=== PATIENT | female | born 2000 | race Caucasian/White ===

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

== ENCOUNTER 2018-02-09 20:40 | Inpatient (IN) | END 2018-02-10 19:45 | disposition home or self-care (01) | DRG 833 ==

== ENCOUNTER 2018-06-01 09:16 | Inpatient (IN) | payer OTHER ==
[~2018-06-01] VITALS: Ht 154.9 cm; Wt 56.4 kg
[~2018-06-01 09:16] MED LIST: ALBU90AE INHALATION; CEPH500C PO; NITR-58 PO
[2018-06-01 09:34] VITALS: BP 119/78; Ht 154.9 cm; Wt 56.4 kg
[2018-06-01] MEDS: LACTATED RINGER'S 1,000 ML IV SCH ×3 (12:49→23:04)
[2018-06-01] MEDS ORDERED: OXYTOCIN 30 UNITS/LR 500 ML IV PRN (13:00)
[2018-06-01] MEDS ORDERED: BUTORPHANOL 2 MG INJ IV PRN (13:00)
[2018-06-01] MEDS ORDERED: LIDOCAINE 1% (MPF) 30 ML INJ INJ PRN (13:00)
[2018-06-01] MEDS ORDERED: METHYLERGONOVINE 0.2 MG INJ IM PRN (13:00)
[2018-06-01] MEDS ORDERED: MISOPROSTOL 200 MCG TAB PR PRN (13:00)
[2018-06-01] MEDS ORDERED: BUTORPHANOL 1 MG INJ IV PRN (13:00)
[2018-06-01] MEDS ORDERED: OXYTOCIN 30 UNITS/LR 500 ML IV SCH ×3 (13:00)
[2018-06-01] MEDS ORDERED: CARBOPROST 250 MCG INJ IM PRN (13:00)
--- NOTE | 2018-06-01 14:35 | TRIAGE ---
OB Triage Datetime Report Generated by CPN: 06/01/2018 11:45 Datetime: 06/01/2018 10:16 Stage of : OB Triage Labor Evaluation Frequency: X1 Monitor Mode: External Pattern: Normal: <= 5 Contractions in 10 Minutes Resting Tone Point Baker: Relaxed Heart Rate FHR Baseline Rate: 145 Monitor Mode: External US Variability: Moderate 6-25 bpm Accelerations: 15X15 Decelerations: None Category: Category I Datetime: 06/01/2018 09:30 Vaginal Exam Dilatation (cms): 1.0 Effacement (%): 70 Station: -3 Exam By: CatieBean MORENO Datetime: 06/01/2018 09:27 Stage of : OB Triage Assessment Type: Triage Maternal Assessment Level of Consciousness: Fully Conscious DTR's/Clonus: DTRs 2+; No Clonus Headache: Denies Blurred Vision: No Respiratory Effort: Unlabored; Regular Rhythm; Equal Expansion Breath Sounds, Left: Clear and Equal Breath Sounds, Right: Clear and Equal Nausea/Vomiting: Denies RUQ Epigastric Pain: Denies Lower Extremities Edema: None Degree: None Upper Extremities Edema: None Degree: None Facial Edema: None Temperature Route: Oral Fall Risk Assessment History of Falling: (0) No Secondary Diagnosis: (0) No Ambulatory Aid: (0) Bedrest/Nurse Assist IV Therapy: (0) No Gait: (0) Normal/Bedrest/Immobile Mental Status: (0) Oriented to Own Ability Fall Score: 0 Fall Risk Score Definition: No Risk: No action required Monitor Mode: External (Annotations: INIITIAL PLACEMENT ) Monitor Mode: External US (Annotations: INIITIAL PLACEMENT ) Pain Assessment Pain Scale: 4 Pain Presence: Intermittent Pain Type: Cramping Pain Location: Abdomen Datetime: 06/01/2018 09:26 Time of Arrival: 06/01/2018 09:14 EGA: 39.2 Arrived By: Ambulatory Arrived From: Home Chief Complaint: BLEEDING AND UC'S STARTED AT 07:30 AM Movement: Present Contractions: Occasional Rupture of Membranes: Denies Vaginal Bleeding: Small Vaginal Discharge: Present Recent Sexual Intercouse: Denies Abdominal Trauma: Not Applicable Patient Complaints: Contractions; Other Time Provider Notified: 06/01/2018 10:42 Provider Notified: ABDIRIZAK TORO Initial Plan: EFM, VE CALL MD Datetime: 02/10/2018 19:45 Stage of : Antepartum Datetime: 02/10/2018 19:23 Stage of : Antepartum Temperature Route: Oral Contraction Comments: PT DENIES CRAMPING Comments: PT STATES + FM Pain Presence: None/Denies Pain Type: N/A Datetime: 02/10/2018 19:00 Labor Evaluation Frequency: NONE Monitor Mode: External Pain Presence: None/Denies Datetime: 02/10/2018 18:00 Maternal Assessment Level of Consciousness: Fully Conscious Headache: Denies Blurred Vision: No Nausea/Vomiting: Denies RUQ Epigastric Pain: Denies Facial Edema: None Labor Evaluation Frequency: NONE Pain Presence: None/Denies Datetime: 02/10/2018 17:00 Labor Evaluation Frequency: X3 Monitor Mode: External Duration (sec)2399: 20-60 Pattern: Normal: <= 5 Contractions in 10 Minutes Resting Tone Point Baker: Relaxed Pain Presence: None/Denies Datetime: 02/10/2018 16:00 DTR's/Clonus: DTRs 2+ Labor Evaluation Frequency: X3 Monitor Mode: External Duration (sec)2399: 30-60 Pattern: Normal: <= 5 Contractions in 10 Minutes Resting Tone Point Baker: Relaxed Datetime: 02/10/2018 15:00 Maternal Assessment Level of Consciousness: Fully Conscious Headache: Denies Blurred Vision: No Nausea/Vomiting: Denies RUQ Epigastric Pain: Denies Facial Edema: None Labor Evaluation Frequency: none Monitor Mode: External Pain Presence: None/Denies Datetime: 02/10/2018 14:00 Maternal Assessment Level of Consciousness: Fully Conscious DTR's/Clonus: DTRs 2+ Headache: Denies Blurred Vision: No Nausea/Vomiting: Denies RUQ Epigastric Pain: Denies Facial Edema: None Labor Evaluation Frequency: none Monitor Mode: External Pain Presence: None/Denies Datetime: 02/10/2018 13:00 Monitor Mode: External Contraction Comments: toco misplaced after pt went bathroom Datetime: 02/10/2018 11:52 Labor Evaluation Frequency: x2 UC noted Monitor Mode: External Duration (sec)2399: 30-40 Quality: Mild Resting Tone Point Baker: Relaxed Heart Rate FHR Baseline Rate: 145 Monitor Mode: External US FHR Baseline Changes: No Baseline Change Variability: Moderate 6-25 bpm Accelerations: 15X15 Decelerations: Variable Comments: Appropriate for gestational age Datetime: 02/10/2018 11:32 Comments: NST started now Datetime: 02/10/2018 11:00 Maternal Assessment Level of Consciousness: Fully Conscious Headache: Denies Blurred Vision: No Respiratory Effort: Unlabored Breath Sounds, Left: Clear and Equal Breath Sounds, Right: Clear and Equal Nausea/Vomiting: Denies RUQ Epigastric Pain: Denies Facial Edema: None Labor Evaluation Frequency: NONE Monitor Mode: External Pain Presence: None/Denies Datetime: 02/10/2018 10:00 Maternal Assessment Level of Consciousness: Fully Conscious Headache: Denies Blurred Vision: No Nausea/Vomiting: Denies RUQ Epigastric Pain: Denies Facial Edema: None Labor Evaluation Frequency: X2 Monitor Mode: Internal Duration (sec)2399: 30 Resting Tone Point Baker: Relaxed Pain Presence: None/Denies Datetime: 02/10/2018 09:00 Maternal Assessment Level of Consciousness: Fully Conscious DTR's/Clonus: DTRs 2+ Headache: Denies Blurred Vision: No Nausea/Vomiting: Denies RUQ Epigastric Pain: Denies Facial Edema: None Labor Evaluation Frequency: none Pain Presence: None/Denies Datetime: 02/10/2018 08:19 Stage of : Antepartum Temperature Route: Oral Labor Evaluation Frequency: NONE Monitor Mode: External Pain Assessment Pain Scale: 0 Pain Presence: None/Denies Pain Goal: 3 Datetime: 02/10/2018 08:05 Assessment Type: Ongoing Assessment Maternal Assessment Level of Consciousness: Fully Conscious Headache: Denies Blurred Vision: No Respiratory Effort: Unlabored Breath Sounds, Left: Clear and Equal Breath Sounds, Right: Clear and Equal Nausea/Vomiting: Denies RUQ Epigastric Pain: Denies Lower Extremities Edema: None Degree: None Upper Extremities Edema: None Degree: None Facial Edema: None Fall Risk Assessment History of Falling: (0) No Gait: (0) Normal/Bedrest/Immobile Datetime: 02/10/2018 07:10 Labor Evaluation Frequency: 0 Monitor Mode: External Resting Tone Point Baker: Relaxed Pain Presence: None/Denies Datetime: 02/10/2018 06:10 Labor Evaluation Frequency: x1 Monitor Mode: External Duration (sec)2399: 50 Quality: Mild Resting Tone Point Baker: Relaxed Pain Presence: None/Denies Datetime: 02/10/2018 05:10 Labor Evaluation Frequency: 0 Monitor Mode: External Resting Tone Point Baker: Relaxed Pain Presence: None/Denies Datetime: 02/10/2018 04:12 Stage of : Antepartum Temperature Route: Oral Pain Presence: None/Denies Datetime: 02/10/2018 04:10 Labor Evaluation Frequency: 0 Monitor Mode: External Resting Tone Point Baker: Relaxed Pain Presence: None/Denies Datetime: 02/10/2018 03:10 Labor Evaluation Frequency: 0 Monitor Mode: External Resting Tone Point Baker: Relaxed Pain Presence: None/Denies Datetime: 02/10/2018 02:10 Labor Evaluation Frequency: 0 Monitor Mode: External Resting Tone Point Baker: Relaxed Pain Presence: None/Denies Datetime: 02/10/2018 01:10 Labor Evaluation Frequency: 0 Monitor Mode: External Duration (sec)2399: denies Resting Tone Point Baker: Relaxed Pain Presence: None/Denies Datetime: 02/10/2018 00:10 Labor Evaluation Frequency: 0 Monitor Mode: External Resting Tone Point Baker: Relaxed Pain Presence: None/Denies Datetime: 02/09/2018 23:10 Labor Evaluation Frequency: X1 Monitor Mode: External Duration (sec)2399: 40 Quality: Mild Resting Tone Point Baker: Relaxed Pain Presence: None/Denies Datetime: 02/09/2018 22:17 Pain Presence: None/Denies Datetime: 02/09/2018 22:10 Labor Evaluation Frequency: X1 Monitor Mode: External Duration (sec)2399: 50 Quality: Mild Resting Tone Point Baker: Relaxed Contraction Comments: PT DENIES FEELING ANY UC'S,SOME UTERUS IRRITABILITY NOTED. Comments: NST Q SHIFT PT STATED FEELING BABY MOVING. Pain Presence: None/Denies Datetime: 02/09/2018 21:33 Stage of : Antepartum Assessment Type: Ongoing Assessment Maternal Assessment Level of Consciousness: Fully Conscious DTR's/Clonus: DTRs 2+; No Clonus Headache: Denies Blurred Vision: No Respiratory Effort: Unlabored; Regular Rhythm; Equal Expansion Breath Sounds, Left: Clear and Equal Breath Sounds, Right: Clear and Equal Nausea/Vomiting: Denies RUQ Epigastric Pain: Denies Lower Extremities Edema: None Degree: None Upper Extremities Edema: None Degree: None Facial Edema: None Temperature Route: Oral Fall Risk Assessment History of Falling: (0) No Secondary Diagnosis: (0) No Ambulatory Aid: (0) Bedrest/Nurse Assist IV Therapy: (0) No Gait: (0) Normal/Bedrest/Immobile Mental Status: (0) Oriented to Own Ability Fall Score: 0 Fall Risk Score Definition: No Risk: No action required Pain Presence: None/Denies Datetime: 02/09/2018 21:00 Stage of : OB Triage Maternal Assessment Level of Consciousness: Fully Conscious Labor Evaluation Frequency: 0 Monitor Mode: External Resting Tone Point Baker: Relaxed Pain Assessment Pain Scale: 6 Pain Presence: Constant Pain Type: Ache Pain Location: Back Pain Goal: 3 Membrane Status: Intact Vaginal Bleeding: None Datetime: 02/09/2018 19:12 Fall Score: 0 Fall Risk Score Definition: No Risk: No action required Datetime: 02/09/2018 19:11 EGA: 23.2
--- NOTE | 2018-06-01 18:20 | HP ---
Date/Time of Note Date/Time of Note DATE: 06/01/18 TIME: 18:15 OB - History Hx of Present Free Text/Dictation 18-year-old female 1 para 0 at term gestation admitted complaining of onset of labor contractions started a few hours prior to admission Patient also complaining of spotting Last Menstrual Period: Aug 30, 2017 Estimated Due Date: Jun 06, 2018 : 1 Para: 0 Care: Good Care Ultrasounds: Normal mid trimester US Obstetrical Complications: None Medical Complications: None Past Family/Social History * Past Medical, Surgical, Family and Obstetric Histories reviewed from chart. Blood Type: A+ Rubella: immune RPR/VDRL: Negative GBS Status: Negative HBsAG: Negative OB Admission Exam Vital Signs Vital Signs Vital Signs Date Temp Pulse Resp B/P (MAP) Pulse Ox O2 O2 Flow FiO2 Time Delivery Rate 06/01/18 98.2 119/78 Room Air 09:34 (92) Physical Exam HEENT: WNL Heart: Rhythm Normal Lungs: Clear, Equal Abdomen: WNL Extremities: Normal Reflexes: Normal Cervical Dilatation: 1cm Effacement: 50% Station: -3 Membranes: Intact Heart Rate: 140's Accelerations: Accelerations Present Decelerations: No Decelerations Varibility: Marked Contractions on Admission: 6-10 Minutes Apart Date/Time Contractions Began: 06/01/2018 in a.m. Frequency of Contractions: Every 7-10 minutes Duration: Over 60 seconds Intensity: Mild Last 72 hours Lab Results CBC & BMP 06/01/18 14:56 OB Assessment/Plan Other Assessment: Term gestation in labor pains Other plan: Proceed with spontaneous labor and if necessary will augment UZIEL SEWELL MD Jun 01, 2018 18:20
[2018-06-02] MEDS ORDERED: OXYTOCIN 30 UNITS/LR 500 ML IV SCH (08:00)
[2018-06-02] MEDS ORDERED: MINERAL OIL LIGHT 10 ML VIAL TOP ONE ×2 (08:00→18:00)
--- NOTE | 2018-06-02 11:05 | PREAC ---
Date/Time of Note Date/Time of Note DATE: 06/02/18 TIME: 11:04 Anesthesia Eval and Record Evaluation Time Pre-Procedure Interview DATE: 06/02/18 TIME: 11:04 Age 18 Sex female NPO: 8 hrs Preoperative diagnosis labor pain Planned procedure epidural Past Medical History Past Medical History: None Surgery & Anesthesia Issues No known issue Meds Anticoagulation: No Beta Satnam within 24 hr: No Reason Beta Satnam not given: Pt. not on B-Satnam Discontinued Reported Medications Nitrofurantoin Monohyd Macrocr (Macrobid) 100 Mg Capsr, 100 MG PO BID, CAP 02/09/18 Albuterol Sulfate (Proair Respiclick) 90 Mcg Aer.pow.ba, 2 PUFFS INHALATION Q6, #1 BOTTLE 07/20/17 Discontinued Scripts Cephalexin* (Cephalexin*) 500 Mg Capsule, 500 MG PO Q6, #30 CAP 0 Refills Prov:UZIEL SEWELL MD 02/10/18 Current Medications Lactated Ringer's 1,000 ml @ 125 mls/hr Q8H IV Last administered on 06/01/18at 23:04; Admin Dose 125 MLS/HR; Start 06/01/18 at 12:49 Butorphanol Tartrate (Stadol) 1 mg Q2H PRN IV .PAIN; Start 06/01/18 at 13:00 Butorphanol Tartrate (Stadol) 2 mg Q2H PRN IV .PAIN; Start 06/01/18 at 13:00 Lidocaine (Xylocaine 1% (Mpf)) 30 ml ONCE PRN INJ .EPISIOTOMY; Start 06/01/18 at 13:00 Oxytocin/Lactated Ringer's 500 ml @ 500 mls/hr ONCE POST IV ; Start 06/01/18 at 13:00 Oxytocin/Lactated Ringer's 500 ml @ 125 mls/hr POST IV ; Start 06/01/18 at 13:00 Oxytocin/Lactated Ringer's 500 ml @ 0 mls/hr ONCE PRN IV .VAGINAL BLEEDING; Start 06/01/18 at 13:00 Methylergonovine Maleate (Methergine) 0.2 mg ONCE PRN IM .VAGINAL BLEEDING; Start 06/01/18 at 13:00 Carboprost Tromethamine (Hemabate) 250 mcg ONCE PRN IM .VAGINAL BLEEDING; Start 06/01/18 at 13:00 Misoprostol (Cytotec) 1,000 mcg ONCE PRN UT .VAGINAL BLEEDING; Start 06/01/18 at 13:00 Oxytocin/Lactated Ringer's 500 ml @ 0 mls/hr FOR AUGMENTATION IV Last administered on 06/02/18at 08:08; Admin Dose 1 MLS/HR; Start 06/01/18 at 13:00 Oxytocin/Lactated Ringer's 500 ml @ 0 mls/hr FOR AUGMENTATION IV ; Start 06/02/18 at 08:00 Meds reviewed: Yes Allergies Coded Allergies: No Known Allergy (Unverified , 07/20/17) Allergies Reviewed: Yes Labs/Studies Labs Reviewed: Reviewed by anesthesiologist Result Diagram: 06/01/18 1456 Laboratory Tests 06/01/18 14:56 Blood Bank Test 06/01/18 14:56 Antibody Screen NEGATIVE Blood Type A POSITIVE Rh Immune Globulin Candidate NO test: Positive Studies: ECG (n/a), CXR (n/as) Pre-procedure Exam Last vitals Vital Signs Date Temp Pulse Resp B/P (MAP) Pulse Ox O2 O2 Flow FiO2 Time Delivery Rate 06/01/18 98.2 119/78 Room Air 09:34 (92) Airway: Adequate mouth opening Mallampati: Mallampati I Teeth: Normal Lung: Normal Heart: Normal ASA Physical Status ASA physical status: 2 Emergency: None Planned Pain Management Epidural Pre-operative Attestations Prior to commencing anesthesia and surgery, the patient was re-evaluated, there was verification of: *The patient's identity *The results of appropriate recent lab work and preoperative vital signs *The above evaluation not changing prior to induction *Anesthetic plan, risk benefits, alternative and complications discussed with patient/family; questions answered; patient/family understands, accepts and wishes to proceed. WALLY PIERRE MD Jun 02, 2018 11:05
[2018-06-02] MEDS ORDERED: FENTAnyl 2MCG/ML-ROPIV 0.2% 100 ML ONE (11:20)
[2018-06-02] MEDS ORDERED: ACETAMINOPHEN 1000MG/100ML IV 100 ML IVPB ONE (11:30)
[2018-06-02] MEDS ORDERED: FENTAnyl 2MCG/ML-ROPIV 0.2% 100 ML BAG EPI SCH (11:30)
[2018-06-02] MEDS ORDERED: NALOXONE (0.4 MG/ML) INJ IV PRN (11:30)
[2018-06-02] MEDS: LACTATED RINGER'S 1,000 ML IV SCH ×2 (12:01→12:03)
--- NOTE | 2018-06-02 18:30 | PAC ---
Date/Time of Note Date/Time of Note DATE: 06/02/18 TIME: 18:29 Post-Anesthesia Notes Post-Anesthesia Note Last documented vital signs Vital Signs Date Temp Pulse Resp B/P (MAP) Pulse Ox O2 O2 Flow FiO2 Time Delivery Rate 06/01/18 98.2 119/78 Room Air 12:34 (92) Activity: WNL Respiratory function: WNL Cardiovascular function: WNL Mental status: Baseline Pain reasonably controlled: Yes Hydration appropriate: Yes Nausea/Vomiting absent: No WALLY PIERRE MD Jun 02, 2018 18:30
[2018-06-02] MEDS ORDERED: KETOROLAC 30 MG INJ IV STA (19:02)
--- NOTE | 2018-06-02 19:02 | LDN ---
Date/Time of Note Date/Time of Note DATE: 06/02/18 TIME: 19:00 Delivery Summary Vacuum extraction of a viable infant over midline episiotomy with Apgars of 8 9 Weeks of Gestation 39 weeks plus Assisted Vaginal Delivery: Vacuum (Vacuum extraction was performed because of history of operations on brain tumors to facilitate the second stage) Placenta Delivered: Spontaneously, Intact & Complete Episiotomy: Yes Indication for episiotomy Second stage facilitation History of 20 operations and brain tumor Perineal laceration: 0 Laceration repair: Midline episiotomy was repaired in layers using 2-0 Vicryl continuous stitch in deeper layers and 2-0 chromic and superficial layer Anesthesia type: Epidural Estimated blood loss: 200 Sponge & Needle done & correct: Yes All needle counts correct: Yes Any foreign bodies felt in the: No Infant Delivery Information Sex Infant Sex: female Apgars 1 Minute: 8 5 Minute: 9 Suctioning Nose & mouth suctioned at anuja: Yes Delee suction performed: No Umbilical Cord Umbilical cord with: 3 Vessels Cord presentations: nuchal cord Nuchal cord present X: 1 Cord Blood was obtained: Yes Mother & Baby Disposition Disposition Mom & Baby to Maternity; Good: Yes (Mother and baby were recovered in good condition) Mom transferred to: Other (Maternity) Baby to NICU: No UZIEL SEWELL MD Jun 02, 2018 19:02
[2018-06-02] MEDS ORDERED: LIDOCAINE 1% (MPF) 30 ML INJ INJ PRN (20:00)
[2018-06-02 21:45] VITALS: BP 121/80; PULSE 96; RESP 18
[2018-06-02] MEDS ORDERED: LANOLIN HPA 1 PKT TOP PRN (22:00)
[2018-06-02] MEDS ORDERED: BENZOCAINE 20% 56 ML SPRAY TOP PRN (22:00)
[2018-06-02] MEDS ORDERED: METHYLERGONOVINE 0.2 MG INJ IM PRN (22:00)
[2018-06-02] MEDS ORDERED: HYDROCODONE/APAP (5/325) TAB PO PRN ×2 (22:00)
[2018-06-02] MEDS ORDERED: CARBOPROST 250 MCG INJ IM PRN (22:00)
[2018-06-02] MEDS ORDERED: OXYTOCIN 30 UNITS/LR 500 ML IV PRN (22:00)
[2018-06-02] MEDS ORDERED: MISOPROSTOL 200 MCG TAB PR PRN (22:00)
[2018-06-02] MEDS ORDERED: DIBUCAINE 1% 30 GM OINT TOP PRN (22:00)
[2018-06-02] MEDS ORDERED: WITCH HAZEL/GLYCERIN PAD PR PRN (22:00)
[2018-06-02] MEDS ORDERED: ZOLPIDEM 5 MG TAB PO PRN (22:00)
[2018-06-02 22:15] VITALS: BP 118/65; PULSE 94
[2018-06-02] MEDS: LACTATED RINGER'S 1,000 ML IV* SCH (23:28)
[2018-06-02] MEDS: CEPHALEXIN 500 MG CAP PO SCH (23:41)
[2018-06-02] MEDS: IBUPROFEN 600 MG TAB PO SCH (23:42)
[2018-06-03 00:30] VITALS: BP 106/68; PULSE 86; RESP 18
[2018-06-03 04:45] VITALS: BP 100/63; PULSE 80; RESP 16
[2018-06-03] MEDS: CEPHALEXIN 500 MG CAP PO SCH ×4 (06:14→23:51)
[2018-06-03] MEDS: IBUPROFEN 600 MG TAB PO SCH ×4 (06:15→23:52)
[2018-06-03 08:30] VITALS: BP 109/72; PULSE 72; RESP 18
[2018-06-03] MEDS: SENNA/DOCUSATE NA (8.6MG/50MG) TAB PO SCH ×2 (09:22→23:51)
[2018-06-03] MEDS: MAGNESIUM HYDROXIDE 30ML CUP PO SCH ×2 (09:22→23:51)
[2018-06-03 11:53] VITALS: BP 106/69; PULSE 87; RESP 17
--- NOTE | 2018-06-03 16:25 | DS ---
Date/Time of Note Date/Time of Note Home today or next day DATE: 06/03/18 TIME: 16:24 Obstetrical Discharge Record Final Diagnosis Final Diagnosis: Term delivered Other Final Diagnosis Status post vaginal delivery Vaginal Delivery Obstetrical Delivery: Episiotomy, Repaired, Vacuum Extraction Complications Other (Previous history of brain tumor with multiple operations) Augmentation: Yes Condition on Discharge Physical Assessment Last Vitals: See nurse's notes Voiding: Yes Bowel Movement: Yes Breast: Soft, non-tender, Filling Fundus: Firm Abdomen and Incision: Abdomen is soft with present bowel sounds and fundus is firm Episiotomy: Episiotomy is healing well and appears clean Calf Tenderness: No Patient Condition: Good UZIEL SEWELL MD Jun 03, 2018 16:25
[2018-06-03 16:32] VITALS: BP 107/73; PULSE 79; RESP 17
--- NOTE | 2018-06-03 18:02 | PD.PPDC ---
[employer] MARKER Discharge Instruction Provider Information Physician Information 18-year-old female had vaginal delivery Diagnosis [id number] Final Diagnosis: Wfout0u Status post vaginal delivery Condition [id number] Patient Condition: Impfi2g Good Diet Dntwl3Hr Diet: Zsxln2j Resume Regular Diet Activity/Restrictions [id number] Activity: [id number] Normal Activity May Shower [id number] Restrictions: Lbeyl0r Nothing in the Vagina [id number] Return to Work or School: Krkkz1n July 18, 2018 Follow-up Follow-up with Physician: 2, 4, Week/Weeks (In clinic) Return to clinic for [id number] OB Instructions: Fvmet2u Breast Tenderness Depression Comment: Pelvic rest for 6 weeks UZIEL SEWELL MD Jun 03, 2018 18:02
[2018-06-03] MEDS ORDERED: IBUP-1542 PO (18:04)
[2018-06-03] MEDS: LACTATED RINGER'S 1,000 ML IV* SCH ×2 (19:44→19:45)
[2018-06-03 20:00] VITALS: BP 119/82; PULSE 85; RESP 18; RESP 19
--- NOTE | 2018-06-03 22:20 | DELSUM ---
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 (Annotations: Data stored by C THEODORE on behalf of user) LABOR SUMMARY EDC: 06/06/2018 00:00 No. Babies in Womb: 1 Attempted: No Labor Anesthesia: Epidural LABOR INFORMATION Reason for Induction: Not Applicable Onset of Labor: 06/02/2018 08:08 Complete Dilatation: 06/02/2018 18:15 Oxytocin: Augmentation Group B Beta Strep: Negative Antibiotics # of Doses: 0 Steroids Given: None Reason Steroids Not Administered: Not Applicable MEMBRANES Membranes Rupture Method: Artificial Rupture of Membranes: 06/02/2018 18:35 Length of Rupture (hr): 0.07 Amniotic Fluid Color: Clear Amniotic Fluid Amount: Moderate Amniotic Fluid Odor: Normal STAGES OF LABOR Stage 1 hr: 10 Stage 1 min: 7 Stage 2 hr: 0 Stage 2 min: 24 Stage 3 hr: 0 Stage 3 min: 6 Total Time in Labor hr: 10 Total Time in Labor min: 37 VAGINAL DELIVERY Episiotomy: Median Laceration Extension: N/A Laceration Type: None Laceration Repair: Yes Initial Vag Sponge Count: 10 Final Vag Sponge Count: 10 Initial Vag Sharps Count: 2 Final Vag Sharps Count: 2 Sponge Count Correct: Yes Sharps Count Correct: Yes BABY A INFORMATION Delivery Date/Time: 06/02/2018 18:39 Method of Delivery: Vaginal Born in Route : No : N/A Forceps: N/A Vacuum Extraction: Successful Shoulder Dystocia : No ASSISTED DELIVERY BABY A Indication for Assisted Delivery: 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 forhead Catheter Prior to Procedure: Yes Station Vacuum/Forcep Apply: no Position Vacuum/Forcep Apply: Left Occipital Anterior Vacuum Number of Pulls: 3 Vacuum Number of PopOffs: 3 Reduce Pressure btwn Ctx: Yes Vacuum Director Data Management: kiwi Total Time Vacuum Applied: 3 SHOULDER DYSTOCIA BABY A Delivery Date/Time: 06/02/2018 18:39 PRESENTATION/POSITION BABY A Presentation: Cephalic Cephalic Presentation: Vertex Vertex Position: Left Occipital Anterior Breech Presentation: N/A PLACENTA INFORMATION BABY A Placenta Delivery Time : 06/02/2018 18:45 Placenta Method of Delivery: Spontaneous Placenta Status: Delivered SCORES BABY A Heart Rate 1 min: >100 bpm Resp Effort 1 min: Good Cry Reflex Irritability 1 min: Cough/Sneeze/Pulls Away Muscle Tone 1 min: Active Motion Color 1 min: Blue/Pale Resuscitation Effort 1 min: Tactile Stimulation; Oxygen; PPV/NCPAP SCORE 1 MIN: 8 Heart Rate 5 min: >100 bpm Resp Effort 5 min: Good Cry Reflex Irritability 5 min: Cough/Sneeze/Pulls Away Muscle Tone 5 min: Active Motion Color 5 min: Body [place], Extremit Blue Resuscitation Effort 5 min: Tactile Stimulation; Oxygen SCORE 5 MIN: 9 INFANT INFORMATION BABY A Gestational Age at Delivery: 39.3 Gestational Status: Full Term- 39- 40.6 Weeks Outcome : Liveborn Infant Condition : Stable Sex: Female IDENTIFICATION/MEDS BABY A ID Band Number: [id number] ID Band Location: Right Leg; Left Arm Sensor Applied: Yes Sensor Number: [id number] Sensor Location : Cord Clamp Vitamin K Given : Not Given Erythromycin Given: Not Given WEIGHT/LENGTH BABY A Birthweight (gm): 2850 Infant Weight (lb): 6 Weight (oz): 5 Infant Length (in): 18.50 Length (cm): 46.99 CORD INFORMATION BABY A No. Cord Vessels: 3 Nuchal Cord : Around Neck x1, Tight Cord Blood Taken: Yes Suction: Mouth; Nose ASSESSMENT BABY A Respirations: Appears Normal Pillow Agent/ALS Called : No Care By: MIRIAM Transferred To: Remains with Mother
[2018-06-04 04:15] VITALS: BP 109/71; PULSE 78; RESP 19
[2018-06-04] MEDS: IBUPROFEN 600 MG TAB PO SCH ×2 (05:55→12:05)
[2018-06-04] MEDS: CEPHALEXIN 500 MG CAP PO SCH ×2 (05:55→12:05)
[2018-06-04 08:30] VITALS: BP 118/83; PULSE 68; RESP 14
[2018-06-04] MEDS ORDERED: VARICELLA VACCINE LIVE/PF 1,350 UNIT/0.5 ML ML SC* ONE (09:00)
[2018-06-04] MEDS ORDERED: DIPHTH/TET/ACEL PERTUSS (ADULT) 0.5 ML VIAL IM* ONE (09:00)
[2018-06-04] MEDS ORDERED: MEASLES,MUMPS,RUBELLA VACCINE INJ SC* ONE (09:00)
[2018-06-04] MEDS: MAGNESIUM HYDROXIDE 30ML CUP PO SCH (09:16)
[2018-06-04] MEDS: SENNA/DOCUSATE NA (8.6MG/50MG) TAB PO SCH (09:16)
== END 2018-06-04 16:39 | disposition home or self-care (01) | DRG 807 ==
LOC: L-D 09:16 → OBT 09:16 → L-D 11:45 → OBT 11:53 → MS1 06-02 22:01
PROVIDERS: ADMIT Obstetrics & Gynecology; ATTEND Obstetrics & Gynecology
PROC: 4A1HXCZ Monitoring of Products of Conception, Cardiac Rate, External Approach (ICD-10-PCS; 2018-06-01)
PROC: 10D07Z6 Extraction of Products of Conception, Vacuum, Via Natural or Artificial Opening (ICD-10-PCS; principal; 2018-06-02)
PROC: 0W8NXZZ Division of Female Perineum, External Approach (ICD-10-PCS; 2018-06-02)
DX: O69.81X0 Labor and delivery complicated by cord around neck, without compression, not applicable or unspecified (principal); Z37.0 Single live birth; O99.52 Diseases of the respiratory system complicating childbirth; J45.909 Unspecified asthma, uncomplicated; Z3A.39 39 weeks gestation of pregnancy; Z86.011 Personal history of benign neoplasm of the brain; Z98.890 Other specified postprocedural states
CPT/HCPCS: 62319; 76815; 76818; 80053; 81003; 84560; 85025; 85362; 85384; 85610; 85730; 86592; 86850; 86900; 86901; 90715; 90716; 99464; G0463; J2590; J3010; J7120

== ENCOUNTER 2018-06-05 09:23 | Emergency (ER) | payer OTHER ==
[~2018-06-05] VITALS: Ht 154.9 cm; Wt 51.7 kg
[~2018-06-05 09:23] MED LIST changes: -ALBU90AE INHALATION; -CEPH500C PO; +IBUP-1542 PO; -NITR-58 PO
[2018-06-05 09:27] VITALS: Ht 154.9 cm; Wt 51.7 kg
[2018-06-05] MEDS ORDERED: CAFFEINE 200 MG TABLET PO STA (09:41)
[2018-06-05] MEDS ORDERED: SOD CHLORIDE 0.9% 1,000 ML IV STA (09:58)
[2018-06-05] MEDS ORDERED: METOCLOPRAMIDE 10 MG INJ IV STA (09:58)
[2018-06-05] MEDS ORDERED: ACETAMINOPHEN 325 MG TAB PO ONE (10:00)
--- NOTE | 2018-06-05 11:13 | ERD ---
ER Documentation Chief Complaint Chief Complaint headache, n/v x 3 days HPI This is a 18-year-old female with a past medical history of asthma who is presenting with a mild throbbing frontal headache. The patient reports being recently status post vaginal delivery of a term 3 days ago. She does not endorse any complications with delivery or . She did get an epidural during her delivery. After having the epidural placed, the patient did develop a headache that slowly improved. The patient's headache seemed to resolve, but over the last few days, the patient has had waxing and waning mild to moderate frontal headache, which resolves after sleeping. That said, the patient endorses having very little sleep related to caring for the child over the last 3 days. The patient does not endorse any confusion episodes. She does not endorse any focal deficits. She has no weakness or numbness or tingling to the face or extremities. She denies any photophobia or phonophobia. She has no blurry or double vision. The patient denies feeling sick recently. The patient denies fever or chills. The patient does not endorse neck or back pain. The patient denies lightheadedness or dizziness. The patient has had no chest pain or trouble breathing. The patient denies nausea or vomiting. The patient denies abdominal pain. The patient denies changes to bowel movements or urination. ROS All systems reviewed and are negative except as per history of present illness. Medications Home Meds Active Scripts Ibuprofen* (Ibuprofen*) 600 Mg Tablet, 600 MG PO Q6, #60 TAB 0 Refills Prov:UZIEL SEWELL MD 06/03/18 Discontinued Reported Medications Nitrofurantoin Monohyd Macrocr (Macrobid) 100 Mg Capsr, 100 MG PO BID, CAP 02/09/18 Albuterol Sulfate (Proair Respiclick) 90 Mcg Aer.pow.ba, 2 PUFFS INHALATION Q6, #1 BOTTLE 07/20/17 Discontinued Scripts Cephalexin* (Cephalexin*) 500 Mg Capsule, 500 MG PO Q6, #30 CAP 0 Refills Prov:UZIEL SEWELL MD 02/10/18 Allergies Allergies: Coded Allergies: No Known Allergy (Unverified , 07/20/17) PMhx/Soc History of Surgery: Yes (GRAFT ON R FOREHEAD) Anesthesia Reaction: No Hx Neurological Disorder: No Hx Respiratory Disorders: Yes (ASTHMA) Hx Cardiac Disorders: No Hx Psychiatric Problems: No Hx Miscellaneous Medical Probl: Yes (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 Extraocular movements intact. Pupils equal, round and reactive to light ENT: Normal External Ears, Nose and Mouth. Neck: Full range of motion. No meningismus. Resp: Clear to auscultation bilaterally, No wheezes, rales or rhonchi Cardio: Regular rate and rhythm. No murmurs, rubs or gallops Abd: Soft, non tender, non distended. Normal bowel sounds Skin: No petechiae or rashes Back: No midline tenderness. No CVA tenderness Ext: No cyanosis, or edema Neur: Awake and alert, oriented 4. Cranial nerves intact. No facial droop. Normal strength, sensation and coordination. Psych: Normal Mood and Affect Results 24 hrs Current Medications Medications Dose Sig/Pamella Start Time Status Last (Trade) Ordered Route PRN Stop Time Admin Dose Reason Admin Caffeine 200 mg ONCE STAT 06/05/18 DC 06/05/18 (Alertness PO 09:41 10:57 Aid) 06/05/18 09:43 650 mg ONCE ONCE 06/05/18 DC 06/05/18 Acetaminophen PO 10:00 10:57 (Tylenol 06/05/18 10:01 Tab) Sodium 1,000 ml @ Q1H STAT 06/05/18 DC 06/05/18 Chloride 1,000 mls/hr IV 09:58 10:04 06/05/18 10:57 10 mg ONCE STAT 06/05/18 DC 06/05/18 Metoclopramid IV 09:58 10:04 e HCl 06/05/18 10:00 (Reglan) Procedures/MDM MDM The patient's presentation warrants further investigation. Previous medical records, if available, were reviewed. The patient presents with a headache. I do have high suspicion that the patient's symptoms are related to lack of sleep and stress from caring for a new child. That said, differential diagnosis includes migraine, tension headache, cluster headache. The patient has no focal deficits. The neurologic exam is reassuring. I have decreased suspicion for cerebral ischemia. There was no trauma or injury. There is no personal or family history of cerebral aneurysm. This is not the worst headache of the patient's life. It was not acutely severe. It is been progressive in nature. I have decreased suspicion for SAH or other ICH. I have low suspicion for temporal arteritis, cavernous venous thrombosis, subdural hematoma, epidural hematoma, meningitis. A post LP headache was considered, but I believe environmental factors are more likely. TREATMENT/DISPOSITION The patient was given a dose of caffeine. The patient was also treated with IV fluids, Tylenol and Reglan. The patient's symptoms resolved. DISCHARGE Upon reevaluation of the patient, symptoms have improved. No emergent diagnoses were identified. At this time, I feel that the patient stable for discharge. The patient was instructed to follow-up with a primary care physician in 1-3 days. The patient will be given strict precautions with which to return to the emergency department. Prescriptions: None The patient's blood pressure was elevated at greater than 120/80 while in the emergency department. The patient was otherwise stable with no evidence of hypertensive urgency or emergency. The patient does not require admission for blood pressure control. I have discussed with the patient the risks of hypertension. I have instructed the patient to return to the ER for any new or worsening symptoms including chest pain, shortness of breath, headache, blurred vision, confusion, nausea, vomiting or LOC. I have advised the patient to follow up with the primary care physician for outpatient monitoring and treatment for hypertension in 1-3 days. Disclaimer: Inadvertent spelling and grammatical errors are likely due to EHR/dictation software use and do not reflect on the overall quality of patient care. Note that the electronic time recorded on this note does not necessarily reflect the actual time of the patient encounter. Departure Diagnosis: Primary Impression: Headache Headache type: unspecified Headache chronicity pattern: acute headache Intractability: not intractable Qualified Codes: R51 - Headache Condition: FLAKO Pino MD Jun 05, 2018 11:13
[2018-06-05 12:40] VITALS: BP 118/85; PULSE 78; RESP 18
== END 2018-06-05 12:59 | disposition home or self-care (01) ==
LOC: E/R 09:23
DX: O90.89 Other complications of the puerperium, not elsewhere classified (principal); O99.53 Diseases of the respiratory system complicating the puerperium; R51 Headache
CPT/HCPCS: 36415; 96374; J2765; J7030; Z7502; Z7610